=== PATIENT | male | born 1990 | race African-American/Black ===

== ENCOUNTER 2018-08-01 09:56 | Emergency (ER) | payer MEDICAID ==
[~2018-08-01] VITALS: Ht 172.7 cm; Wt 73.0 kg
[2018-08-01 09:59] VITALS: BP 140/74
== END 2018-08-01 10:18 | disposition left against medical advice (07) ==
LOC: ER 09:56
DX: R51 Headache (principal); Z53.21 Procedure and treatment not carried out due to patient leaving prior to being seen by health care provider